=== PATIENT | female | born 1980 | race Hispanic/Latino ===

== ENCOUNTER 2019-05-16 09:44 | Outpatient (CLI) | payer OTHER ==
--- NOTE | 2019-05-16 10:21 | Mammography Report ---
DIGITAL RIGHT DIAGNOSTIC MAMMOGRAM WITH CAD, WITHOUT TOMOSYNTHESIS 05/16/2019 INDICATION: ABNORMAL MAMMOGRAM TECHNIQUE: Digital right mammographic imaging was performed without and with implant displacement. S pot compression views were obtained. This examination was interpreted with the benefit of Computer-aided Detection analysis. COMPARISON: 05/01/2019 Breast Density: The breast is heterogeneously dense, which may obscure small masses. FINDINGS: Additional right mammographic views are negative. Satisfactory effacement of asymmetry. IMPRESSION: No mammographic evidence of malignancy. Follow up recommendation: Routine BI-RADS Category 2: Benign. A "normal" or negative report should not discourage follow up or biopsy of a clinically significant f inding. A written summary of these findings will be mailed to the patient. The patient will be entered into a mammography reporting system which will generate a reminder letter for the patient's next appointmen t at the appropriate interval. According to the [employer], yearly mammograms are recommended starting at age 40 and continuing as long as a woman is in good health. Breast MRI is recommended for women with an anthony roximately 20-25% or greater lifetime risk of breast cancer, including women with a strong family his tory of breast or ovarian cancer and women who have been treated for Hodgkin's disease. Signer Name: Luis Miller MD Signed: 05/16/2019 10:17 AM Workstation Name: [id number]
== END 2019-05-16 09:45 | disposition home or self-care (01) ==
LOC: SPVWC 09:44
PROVIDERS: ATTEND Surgery
DX: R92.2 Inconclusive mammogram (principal)